=== PATIENT | female | born 1985 | race Caucasian/White ===

== ENCOUNTER 2017-02-12 21:07 | Emergency (ER) | payer OTHER ==
[~2017-02-12 21:07] MED LIST: PERCOCET1 TA1 PO
--- NOTE | 2017-02-12 22:16 | DIAGNOSTIC IMAGING REPORT ---
PROCEDURE: XR KNEE 4 VIEWS - RIGHT INDICATION: PAIN TECHNIQUE: Four views. COMPARISON: None. FINDINGS: No fracture or dislocation. Mild patellofemoral compartment degenerative change. No effusion. IMPRESSION: 1. Mild degenerative changes of the patellofemoral compartment.
--- NOTE | 2017-02-12 22:34 | ED ORDER SUMMARY ---
..... Patient: GENDecember OrderSheet [facility] VisitID: [id number] [place] [address] 32y, F Registration Date/Time: 02/12/2017 ORDER SHEET Weight: 108.8 kg (stated) Allergies: No Known Drug Allergy GENERAL ORDERS: Knee 4V Right Urgent (21:39 02/12/2017 EKoroleva P.A.-C) (Ack 21:40 AMcQuoid ER Tech1) (22:15 MCampbell) Solo Wrap (22:25 02/12/2017 EKoroleva P.A.-C) (22:34 HSoule) Crutches (22:25 02/12/2017 EKoroleva P.A.-C) (22:34 HSoule) MEDICATION ORDERS: Percocet PO 5/325 mg (HIGH ALERT MEDICATION, NOW) (21:39 02/12/2017 EKoroleva P.A.-C) (21:57 SSambou R.N.) Motrin PO 800 mg (NOW) (21:39 02/12/2017 EKoroleva P.A.-C) (21:57 SSambou R.N.) IV FLUIDS: ORDER SHEET NOTES: [Electronically signed by Sheriff Reyes Patterson (22:41 02/12/2017)] [Electronically signed by Brittney ValentinoAKeegan-Anu (22:44 02/12/2017)] [Electronically locked/signed by Sheriff Reyes Patterson (22:41 02/12/2017)]
--- NOTE | 2017-02-12 22:34 | ED NURSING NOTES ---
Clinical Report - Nurses [facility] [place] [address] 02/12/2017 21:08 Patient: GEN December TRIAGE Triage time 21:29. Acuity: LEVEL 3. Chief Complaint: RIGHT LOWER EXTREMITY PAIN. --21:34 Sheriff Patterson R.N. 21:29 02/12/17. BP: 115/89. HR: 83. RR: 20. O2 saturation: 100%. Temp: 98.3 F. Pain level now: 06/30. --21:34 Sheriff Patterson R.N. Weight: 108.8 kg stated. Height/Length: 66 inches Per Patient. BMI: 38.7. --21:33 Sheriff Patterson R.N. Medications None. --21:30 Sheriff Patterson R.N. Allergies No Known Drug Allergy. --21:30 Sheriff Patterson R.N. History Arrived by private vehicle. Historian: patient. Accompanied by father. No injury occurred. This occurred (6 hours ago). ( Sudden right knee pain, not injury related. Used to wear braces on right leg.). Treatment OCULAR CARE TECHNICIAN: Ice. PAST MEDICAL HX: Tetanus status: unknown. SURGERY HX: No history of previous surgery. SOCIAL HX: Never smoker. History of drug use: marijuana. No alcohol use. FALL RISK ASSESSMENT: Fall risk assessment completed. No fall risk identified. NUTRITIONAL RISK ASSESSMENT: The nutritional risk assessment revealed no deficiencies. FUNCTIONAL ASSESSMENT: Functional assessment: no impairments noted. LEARNING NEEDS ASSESSMENT: The learning needs assessment revealed no barriers. --21:34 Sheriff Patterson R.N. PROBLEMS: Dental Abscess. Abdominal Pain. --21:30 Sheriff Patterson R.N. PHYSICAL ASSESSMENT Ambulatory to room. GENERAL / NEURO / PSYCH: Oriented X 4. Appears in pain. EXTREMITIES: Right knee: tenderness and swelling. Limited ROM (diminished flexion and extension). SKIN: Skin intact. Skin is warm and dry. --21:34 Sheriff Patterson R.N. NURSING PROGRESS NOTES Two patient identifiers checked. Call light placed in reach. Side rails up x 2. Bed placed in lowest position. Brakes of bed on. --21:35 Sheriff Patterson R.N. 21:57 02/12/2017 Percocet (Oxycodone-Acetaminophen) PO 5/325 mg Tablets 1 tab given. Allergies verified, confirmed 5 rights and sedative warning given to the patient. --21:57 Sheriff Patterson R.N. 21:57 02/12/2017 Motrin PO 800 mg given. Allergies verified and confirmed 5 rights. --21:57 Sheriff Patterson R.N. DISPOSITION / DISCHARGE Condition at departure: stable. No learning barriers present. Discharge instructions provided and reviewed with the patient. Reviewed medication(s) side effects, precautions, dosing and course information. Prescription(s) given to the parent. Patient verbalized understanding. Written instructions provided in Romanian. The patient was discharged by the physician medical office assistant. She was discharged home and accompanied by parent. She left the Emergency Department ambulatory and via private vehicle. Parent driving. --22:40 Sheriff Patterson R.N. Locked/Released at 02/12/2017 22:41 by Sheriff Patterson R.N.
--- NOTE | 2017-02-12 22:34 | ED ORDER SUMMARY ---
..... Patient: GENDecember OrderSheet [facility] VisitID: [id number] [place] [address] 32y, F Registration Date/Time: 02/12/2017 ORDER SHEET Weight: 108.8 kg (stated) Allergies: No Known Drug Allergy GENERAL ORDERS: Knee 4V Right Urgent (21:39 02/12/2017 EKoroleva P.A.-C) (Ack 21:40 AMcQuoid ER Tech1) (22:15 MCampbell) Solo Wrap (22:25 02/12/2017 EKoroleva P.A.-C) (22:34 HSoule) Crutches (22:25 02/12/2017 EKoroleva P.A.-C) (22:34 HSoule) MEDICATION ORDERS: Percocet PO 5/325 mg (HIGH ALERT MEDICATION, NOW) (21:39 02/12/2017 EKoroleva P.A.-C) (21:57 SSambou R.N.) Motrin PO 800 mg (NOW) (21:39 02/12/2017 EKoroleva P.A.-C) (21:57 SSambou R.N.) IV FLUIDS: ORDER SHEET NOTES: [Electronically signed by Sheriff Reyes Patterson (22:41 02/12/2017)] [Electronically signed by Brittney ValentinoAKeegan-Anu (22:44 02/12/2017)] [Electronically locked/signed by Sheriff Reyes Patterson (22:41 02/12/2017)]
--- NOTE | 2017-02-12 22:34 | ED CLINICAL REPORT ---
Clinical Report - Physicians/Mid Levels [facility] [address] [place] [address] 02/12/2017 21:08 Patient: TRACEY BLEVINS Time Seen: 22:01 Feb 12 2017. Arrived- By private vehicle. Historian- patient. HISTORY OF PRESENT ILLNESS Chief Complaint: Injury to right knee. The injury happened just prior to arrival. This was not caused by a direct blow or crush injury. Occurred at home. Patient is experiencing moderate pain. Patient denies injury to the head or neck. (patient reports knee pain over the last 6 hours, took her 's Percocet at 3 PM. Reports usually wears a brace to the right leg, did not wear brace today, was on her legs a lot today. Denies history of DVT. Denies history of any recent STD. Denies history of gout.). REVIEW OF SYSTEMS The patient complains of pain on weight bearing. All systems otherwise negative, except as recorded above. PAST HISTORY The patient has not had a prior injury to the same area. SOCIAL HISTORY Never smoker. History of drug use: marijuana. Not an IV drug user. ADDITIONAL NOTES The nursing notes have been reviewed. PHYSICAL EXAM Vital Signs: 02/12/2017 21:29 BP: 115/89. HR: 83. RR: 20. O2 saturation: 100%. Temp: 98.3 F. Pain level now: 10/10. Appearance: Alert. No acute distress. Head: Head atraumatic. ENT: Ears normal. Nose normal. Neck: Normal inspection. CVS: Normal heart rate and rhythm. Heart sounds normal. Respiratory: No respiratory distress. Breath sounds normal. No decreased air movement or chest wall injury. Back: Normal inspection. No tenderness. No vertebral point tenderness or soft tissue tenderness. Skin: Skin warm. Extremities: Right thigh. No tenderness or swelling. Right knee: tenderness located in the patella. Limited ROM secondary to pain (diminished flexion). No ligamentous laxity of the anterior cruciate. No joint effusion. No erythema, ecchymosis or puncture wound. Right leg. No tenderness or laceration. (Pain with flexion of the right knee.). Gait: Limping gait. Neuro, Vascular and Tendons: Vascular status intact. Neuro: Oriented X 3. LABS, X-RAYS, AND EKG Rt Knee X-ray: (IMPRESSION: 1. Mild degenerative changes of the patellofemoral compartment. Electronically Final signed by:Freddie English MD 02/12/2017 10:16:27 PM). PROGRESS AND PROCEDURES Course of Care: Patient with pain reproducible on exam. No prior injury. Reports ongoing issues, history of similar pain when she does this. Patient at this time with lower concern for DVT. No recent history of STD, less likely gonococcal arthritis. Patient afebrile no overlying signs of infectious process. The distal sensation. No hip tenderness or pain. Patient is stable. Symptoms better. Patient/family counseled. Disposition: Discharged. CLINICAL IMPRESSION Sprain of the medial collateral ligament of the left knee. Acute monoarthritis of the right knee. INSTRUCTIONS Apply ice. Use crutches. Elevate affected areas above chest level. You may walk and bear weight as tolerated. Prescription Medications: Ibuprofen 800 mg tablets: take 1 tablet orally every 8 hours for 5 days, as needed for pain. Dispense fifteen (15). No refill. Ultram 50 mg: take 1 orally every 6 hours as needed for pain. Dispense twenty (20). No refills. Substitution is permissible. Follow-up with: [facility], , [address], , [place], [id number] Follow up. Call for the next available appointment. (Electronically signed by Brittney Valentino P.A.-C 02/12/2017 22:44)
--- NOTE | 2017-02-12 22:34 | ED NURSING NOTES ---
Clinical Report - Nurses [facility] [place] [address] 02/12/2017 21:08 Patient: GEN December TRIAGE Triage time 21:29. Acuity: LEVEL 3. Chief Complaint: RIGHT LOWER EXTREMITY PAIN. --21:34 Sheriff Patterson R.N. 21:29 02/12/17. BP: 115/89. HR: 83. RR: 20. O2 saturation: 100%. Temp: 98.3 F. Pain level now: 06/30. --21:34 Sheriff Patterson R.N. Weight: 108.8 kg stated. Height/Length: 66 inches Per Patient. BMI: 38.7. --21:33 Sheriff Patterson R.N. Medications None. --21:30 Sheriff Patterson R.N. Allergies No Known Drug Allergy. --21:30 Sheriff Patterson R.N. History Arrived by private vehicle. Historian: patient. Accompanied by father. No injury occurred. This occurred (6 hours ago). ( Sudden right knee pain, not injury related. Used to wear braces on right leg.). Treatment GUEST RELATIONS REPRESENTATIVE: Ice. PAST MEDICAL HX: Tetanus status: unknown. SURGERY HX: No history of previous surgery. SOCIAL HX: Never smoker. History of drug use: marijuana. No alcohol use. FALL RISK ASSESSMENT: Fall risk assessment completed. No fall risk identified. NUTRITIONAL RISK ASSESSMENT: The nutritional risk assessment revealed no deficiencies. FUNCTIONAL ASSESSMENT: Functional assessment: no impairments noted. LEARNING NEEDS ASSESSMENT: The learning needs assessment revealed no barriers. --21:34 Sheriff Patterson R.N. PROBLEMS: Dental Abscess. Abdominal Pain. --21:30 Sheriff Patterson R.N. PHYSICAL ASSESSMENT Ambulatory to room. GENERAL / NEURO / PSYCH: Oriented X 4. Appears in pain. EXTREMITIES: Right knee: tenderness and swelling. Limited ROM (diminished flexion and extension). SKIN: Skin intact. Skin is warm and dry. --21:34 Sheriff Patterson R.N. NURSING PROGRESS NOTES Two patient identifiers checked. Call light placed in reach. Side rails up x 2. Bed placed in lowest position. Brakes of bed on. --21:35 Sheriff Patterson R.N. 21:57 02/12/2017 Percocet (Oxycodone-Acetaminophen) PO 5/325 mg Tablets 1 tab given. Allergies verified, confirmed 5 rights and sedative warning given to the patient. --21:57 Sheriff Patterson R.N. 21:57 02/12/2017 Motrin PO 800 mg given. Allergies verified and confirmed 5 rights. --21:57 Sheriff Patterson R.N. DISPOSITION / DISCHARGE Condition at departure: stable. No learning barriers present. Discharge instructions provided and reviewed with the patient. Reviewed medication(s) side effects, precautions, dosing and course information. Prescription(s) given to the parent. Patient verbalized understanding. Written instructions provided in Luxembourgish. The patient was discharged by the physician boilermaker's assistant. She was discharged home and accompanied by parent. She left the Emergency Department ambulatory and via private vehicle. Parent driving. --22:40 Sheriff Patterson R.N. Locked/Released at 02/12/2017 22:41 by Sheriff Patterson R.N.
--- NOTE | 2017-02-12 22:34 | ED CLINICAL REPORT ---
Clinical Report - Physicians/Mid Levels [facility] [address] [place] [address] 02/12/2017 21:08 Patient: TRACEY BLEVINS Time Seen: 22:01 Feb 12 2017. Arrived- By private vehicle. Historian- patient. HISTORY OF PRESENT ILLNESS Chief Complaint: Injury to right knee. The injury happened just prior to arrival. This was not caused by a direct blow or crush injury. Occurred at home. Patient is experiencing moderate pain. Patient denies injury to the head or neck. (patient reports knee pain over the last 6 hours, took her 's Percocet at 3 PM. Reports usually wears a brace to the right leg, did not wear brace today, was on her legs a lot today. Denies history of DVT. Denies history of any recent STD. Denies history of gout.). REVIEW OF SYSTEMS The patient complains of pain on weight bearing. All systems otherwise negative, except as recorded above. PAST HISTORY The patient has not had a prior injury to the same area. SOCIAL HISTORY Never smoker. History of drug use: marijuana. Not an IV drug user. ADDITIONAL NOTES The nursing notes have been reviewed. PHYSICAL EXAM Vital Signs: 02/12/2017 21:29 BP: 115/89. HR: 83. RR: 20. O2 saturation: 100%. Temp: 98.3 F. Pain level now: 10/10. Appearance: Alert. No acute distress. Head: Head atraumatic. ENT: Ears normal. Nose normal. Neck: Normal inspection. CVS: Normal heart rate and rhythm. Heart sounds normal. Respiratory: No respiratory distress. Breath sounds normal. No decreased air movement or chest wall injury. Back: Normal inspection. No tenderness. No vertebral point tenderness or soft tissue tenderness. Skin: Skin warm. Extremities: Right thigh. No tenderness or swelling. Right knee: tenderness located in the patella. Limited ROM secondary to pain (diminished flexion). No ligamentous laxity of the anterior cruciate. No joint effusion. No erythema, ecchymosis or puncture wound. Right leg. No tenderness or laceration. (Pain with flexion of the right knee.). Gait: Limping gait. Neuro, Vascular and Tendons: Vascular status intact. Neuro: Oriented X 3. LABS, X-RAYS, AND EKG Rt Knee X-ray: (IMPRESSION: 1. Mild degenerative changes of the patellofemoral compartment. Electronically Final signed by:Freddie English MD 02/12/2017 10:16:27 PM). PROGRESS AND PROCEDURES Course of Care: Patient with pain reproducible on exam. No prior injury. Reports ongoing issues, history of similar pain when she does this. Patient at this time with lower concern for DVT. No recent history of STD, less likely gonococcal arthritis. Patient afebrile no overlying signs of infectious process. The distal sensation. No hip tenderness or pain. Patient is stable. Symptoms better. Patient/family counseled. Disposition: Discharged. CLINICAL IMPRESSION Sprain of the medial collateral ligament of the left knee. Acute monoarthritis of the right knee. INSTRUCTIONS Apply ice. Use crutches. Elevate affected areas above chest level. You may walk and bear weight as tolerated. Prescription Medications: Ibuprofen 800 mg tablets: take 1 tablet orally every 8 hours for 5 days, as needed for pain. Dispense fifteen (15). No refill. Ultram 50 mg: take 1 orally every 6 hours as needed for pain. Dispense twenty (20). No refills. Substitution is permissible. Follow-up with: [facility], , [address], , [place], [address] Follow up. Call for the next available appointment. (Electronically signed by Brittney Valentino P.A.-C 02/12/2017 22:44)
--- NOTE | 2017-02-12 22:45 | ED MAR SUMMARY ---
..... Medication Administration Record [facility] [address] [place] [address] Patient: TRACEY BLEVINS Visit ID: [id number] 32y, F Weight: 108.8 kg Height/Length: 66 in BMI: 38.7 ALLERGIES: No Known Drug Allergy Given 21:02/12/2017 Sheriff Leonardo RNell Medication Administered: PERCOCET [PO] (OXYCODONE-ACETAMINOPHEN), Dose: 1 tab 5/325 mg Tablets PO. Medication Ordered: Percocet PO 5/325 mg (HIGH ALERT MEDICATION, NOW). Given 21:02/12/2017 Sheriff Leonardo RKeeganN. Medication Administered: MOTRIN [PO], Dose: 800 mg PO. Medication Ordered: Motrin PO 800 mg (NOW).
--- NOTE | 2017-02-12 22:45 | ED DISCHARGE INSTRUCTIONS ---
Patient: GEN, December General Instructions [facility] VisitID: [id number] [address] [place] [address] 32y, F Registration Date/Time: 02/12/2017 Sprain of the medial collateral ligament of the left knee. Acute monoarthritis of the right knee. INSTRUCTIONS Apply ice. Use crutches. Elevate affected areas above chest level. You may walk and bear weight as tolerated. Prescription Medications: Ibuprofen 800 mg tablets: take 1 tablet orally every 8 hours for 5 days, as needed for pain. Dispense fifteen (15). No refill. Ultram 50 mg: take 1 orally every 6 hours as needed for pain. Dispense twenty (20). No refills. Substitution is permissible. Follow-up with: [facility], , [address], , [place], [id number] Follow up. Call for the next available appointment. ADDITIONAL INFORMATION Sprain, Knee A sprain is an injury to the ligaments or capsule that holds a joint together. There are no broken bones. Most sprains take three to six weeks to heal. If the ligament is completely torn (severe sprain), it can take months to recover from. Most knee sprains are treated with a splint, knee immobilizer or elastic wrap for support. Severe sprains may require surgery. Home care The following guidelines will help you care for your injury at home: Stay off the injured leg as much as possible until you can walk on it without pain. If you have a lot of pain with walking, crutches or a walker may be prescribed. (These can be rented or purchased at many pharmacies and surgical or orthopedic supply stores). Follow your doctor's advice regarding when to begin bearing weight on that leg. Keep your leg elevated to reduce pain and swelling. When sleeping, place a pillow under the injured leg. When sitting, support the injured leg so it is level with your waist. This is very important during the first 48 hours. Apply an ice pack (ice cubes in a plastic bag, wrapped in a towel) over the injured area for 20 minutes every 12 hours the first day. You can place the ice pack directly over the splint. If a Velcro knee immobilizer was applied, you can open this to apply the ice pack directly to the knee. Continue with ice packs 34 times a day for the next two days, then as needed for the relief of pain and swelling. You may use acetaminophen or ibuprofen to control pain, unless another pain medicine was prescribed. If you have chronic liver or kidney disease or ever had a stomach ulcer or GI bleeding, talk with your doctor before using these medicines. If you were given a splint, keep it completely dry at all times. Bathe with your splint out of the water, protected with a large plastic bag, rubber-banded at the top end. If a fiberglass splint gets wet, you can dry it with a hair-dryer. If you have a Velcro knee immobilizer, you can remove this to bathe, unless told otherwise. Follow-up care Follow up with your doctor as advised. Any X-rays you had today dont show any broken bones, breaks, or fractures. Sometimes fractures dont show up on the first X-ray. Bruises and sprains can sometimes hurt as much as a fracture. These injuries can take time to heal completely. If your symptoms dont improve or they get worse, talk with your doctor. You may need a repeat X-ray. When to seek medical care Get prompt medical attention if any of the following occur: The plaster cast or splint becomes wet or soft The fiberglass cast or splint remains wet for more than 24 hours Pain or swelling increases Toes become cold, blue, numb or tingly Arthralgia Arthralgia is the term for pain in or around the joint. It is not a disease but a symptom. This may involve one or more joints. Sometimes arthralgias move from joint to joint. There are many causes for joint pain. These include: Injury Osteoarthritis (from wearing out of the joint surface) Rheumatoid arthritis (an autoimmune disease) Gout (inflammation of the joint due to crystals in the joint fluid) Infection inside the joint Bursitis (inflammation of the fluid-filled sacs around the joint) Lupus and other collagen-vascular disease Home Care: Rest the involved joint(s) until your symptoms improve. You may use acetaminophen (Tylenol) or ibuprofen (Motrin, Advil) to control pain, unless another pain medicine was prescribed. [NOTE: If you have chronic liver or kidney disease or ever had a stomach ulcer or GI bleeding, talk with your doctor before using these medicines.] Follow Up with your doctor or as advised by our staff. [NOTE: If you had an X-ray it will be reviewed by a specialist. You will be notified of any new findings that may affect your care.] Return Promptly or contact your doctor if any of the following occurs: Pain increases Pain moves to other joints New rash appears Fever of 100.4F (38C) or higher, or as directed by your healthcare provider Crutch Walking Crutch Adjustment Make sure the crutches you use are adjusted to fit you. When you stand, there should be room to fit 2-3 fingers between the top of the crutch and your armpit. Your elbow should be slightly bent when holding the hand medical technologist hematology. Crutch Walking: Place the crutches forward 12" in front of and 6" to the side of your feet. Lean your weight forward as you push down on the handgrips. Your weight should be on your hands and yourstrong leg, not your armpits . Let your body swing through, landing on the strong leg. Advance the crutches forward again. The crutch and the injured leg should move together. Going Up Steps: ("Up with the good") With both crutches on the same step as your feet, push down on the handgrips. Balancing with very light pressure on the weak leg, let your hands support your weight as you raise your strong leg onto the next higher step. Transfer all your weight to your strong leg (still bent) as you move the crutches up to the next step alongside the strong leg. With your weight evenly balanced on the two crutches and your strong leg, straighten your strong knee as you raise the weak leg up to the next step. Going Down Steps: ("Down with the bad") With both crutches on the same step as your feet, push down on the handgrips. With your weight evenly balanced on the two crutches and your strong leg, bend your strong knee as you lower the weak leg down to the next step. Let your strong leg support you (still bent) as you move the crutches down alongside the weak leg. Transfer your weight to your hands, balancing with very light pressure on the weak leg as you lower your strong leg alongside your weak leg. You have been given the following additional information: Knee Sprain Arthralgia Crutch Walking You may walk and bear weight as tolerated. (Electronically signed by Brittney Valentino P.A.-C 02/12/2017 22:44)
--- NOTE | 2017-02-12 22:45 | ED MAR SUMMARY ---
..... Medication Administration Record [facility] [address] [place] [address] Patient: TRACEY BLEVINS Visit ID: [id number] 32y, F Weight: 108.8 kg Height/Length: 66 in BMI: 38.7 ALLERGIES: No Known Drug Allergy Given 21:02/12/2017 Sheriff Leonadro RNell Medication Administered: PERCOCET [PO] (OXYCODONE-ACETAMINOPHEN), Dose: 1 tab 5/325 mg Tablets PO. Medication Ordered: Percocet PO 5/325 mg (HIGH ALERT MEDICATION, NOW). Given 21:02/12/2017 Sheriff Leonardo RKeeganN. Medication Administered: MOTRIN [PO], Dose: 800 mg PO. Medication Ordered: Motrin PO 800 mg (NOW).
--- NOTE | 2017-02-12 22:45 | ED MED RECONCILIATION SUMMARY ---
Patient: GENDecember Medication Reconciliation Report [facility] VisitID: [id number] [place] [address] 32y, F Registration Date/Time: 02/12/2017 Weight: 108.8 kg Height/Length: 66 in. BMI: 38.7 ALLERGIES: No Known Drug Allergy The patient's Home Medications are listed below: NONE. The source(s) of the original Home Medication information: Not obtained. The following Medications were given to the patient in the Emergency Department: Percocet [PO] PO 1 tab, administered: 02/12/2017 9:57:00 PM Motrin [PO] PO 800 mg, administered: 02/12/2017 9:57:00 PM The following Medications were prescribed to the patient: Ibuprofen 800 mg tablets: take 1 tablet orally every 8 hours for 5 days, as needed for pain. Dispense fifteen (15). No refill. -- Brittney Valentino, P.AKeegan-Anu Ultram 50 mg: take 1 orally every 6 hours as needed for pain. Dispense twenty (20). No refills. Substitution is permissible. -- Brittney Valentino P.AKeegan-C
--- NOTE | 2017-02-12 22:45 | ED MED RECONCILIATION SUMMARY ---
Patient: GENDecember Medication Reconciliation Report [facility] VisitID: [id number] [place] [address] 32y, F Registration Date/Time: 02/12/2017 Weight: 108.8 kg Height/Length: 66 in. BMI: 38.7 ALLERGIES: No Known Drug Allergy The patient's Home Medications are listed below: NONE. The source(s) of the original Home Medication information: Not obtained. The following Medications were given to the patient in the Emergency Department: Percocet [PO] PO 1 tab, administered: 02/12/2017 9:57:00 PM Motrin [PO] PO 800 mg, administered: 02/12/2017 9:57:00 PM The following Medications were prescribed to the patient: Ibuprofen 800 mg tablets: take 1 tablet orally every 8 hours for 5 days, as needed for pain. Dispense fifteen (15). No refill. -- Brittney Valentino, P.AKeegan-Anu Ultram 50 mg: take 1 orally every 6 hours as needed for pain. Dispense twenty (20). No refills. Substitution is permissible. -- Brittney Valentino P.AKeegan-C
== END 2017-02-12 22:40 | disposition home or self-care (01) ==
LOC: ED SRH 21:07
DX: S83.411A Sprain of medial collateral ligament of right knee, initial encounter (principal); W22.8XXA Striking against or struck by other objects, initial encounter; Y93.9 Activity, unspecified; Y92.019 Unspecified place in single-family (private) house as the place of occurrence of the external cause; Y99.9 Unspecified external cause status; M13.161 Monoarthritis, not elsewhere classified, right knee